=== PATIENT | female | born 1960 | race Caucasian/White ===

== ENCOUNTER 2019-02-26 17:11 | Emergency (ER) | payer BC ==
[2019-02-26 17:43] VITALS: BP 131/69
--- NOTE | 2019-02-26 19:19 | UC ---
Back Pain HPI - HPI Summary HPI Summary: ONSET OF LOW BACK PAIN 5 DAYS AGO. 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 HAS SOME PAIN IN LEFT ANTERIOR THIGH WELL BUT DENIES ANY NUMBNESS/ TINGLING, NO SADDLE ANESTHESIA, NO LOSS OF BOWEL/BLADDER CONTROL. IBUPROFEN HELPS A BIT. PAIN IS NOT PREVENTING HER FROM CARRYING OUT HER DAILY ACTIVITIES. - History of Current Complaint Chief Complaint: UCBackPain Stated Complaint: BACK PAIN Time Seen by Provider: 02/26/19 19:04 Hx Obtained From: Patient Hx Last Menstrual Period: 1.5 yrs Onset/Duration: Gradual Onset, Lasting Days, Still Present Timing: Constant Severity Initially: Moderate Severity Currently: Moderate Pain Intensity: 4 Pain Scale Used: 0-10 Numeric Back Pain: Is Discrete @ - LOW BACK Character: Stiffness Aggravating Factor(s): Movement, Lifting Alleviating Factor(s): Rest, Heat, OTC Meds Associated Signs And Symptoms: Positive: Negative - Allergies/Home Medications Allergies/Adverse Reactions: Allergies Allergy/AdvReac Type Severity Reaction Status Date / Time No Known Allergies Allergy Verified 02/26/19 17:38 PMH/Surg Hx/FS Hx/Imm Hx Cardiovascular History: Hypertension - Surgical History Surgical History: Yes Surgery Procedure, Year, and Place: 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 Negative: Decreased ROM Physical Exam Triage Information Reviewed: Yes Appearance: Well-Appearing, No Pain Distress, Well-Nourished Vital Signs: Initial Vital Signs Temp 97.1 F 02/26/19 17:39 Pulse 77 02/26/19 17:39 Resp 20 02/26/19 17:39 BP 131/69 02/26/19 17:39 Pulse Ox 96 02/26/19 17:39 Vital Signs Reviewed: Yes Eyes: Positive: Conjunctiva Clear ENT: Positive: Hearing grossly normal Neck: Positive: Supple Respiratory: Positive: No respiratory distress, No accessory muscle use Cardiovascular: Positive: Pulses Normal Abdomen Description: Positive: Soft Musculoskeletal: Positive: ROM Intact, No Edema, Other: - NO FOCAL TENDERNESS LOW BACK Neurological: Positive: Alert, Muscle Tone Normal Psychological: Positive: Age Appropriate Behavior Skin: Negative: Rashes Back Pain Course/Dx - Differential Dx/Diagnosis Provider Diagnosis: Acute low back pain Discharge ED - Sign-Out/Discharge Documenting (check all that apply): Patient Departure All imaging exams completed and their final reports reviewed: No Studies - Discharge Plan Condition: Stable Disposition: HOME Prescriptions: Cyclobenzaprine TAB* [Flexeril TAB*] 10 mg PO BID PRN #30 tab PRN Reason: Pain Naproxen [Naproxen 500 mg tab] 500 mg PO BID PRN #30 tablet PRN Reason: Pain Patient Education Materials: Low Back Strain (ED) Referrals: Brandin Hidalgo PA [Primary Care Provider] - If Needed Additional Instructions: YOUR SYMPTOMS SHOULD IMPROVE SIGNIFICANTLY OVER THE NEXT 1-2 WEEKS. IF YOU DO NOT IMPROVE EXPECTED FOLLOW-UP WITH YOUR PCP. REST. HEAT, MASSAGE. NAPROXEN NEEDED FOR DISCOMFORT. TAKE MUSCLE RELAXER BEFORE BED. BE SURE TO GO THROUGH SLOW RANGE OF MOTION AND STRETCHING EXERCISES DAILY YOU ARE ABLE TO PREVENT STIFFENING UP AND MAKING THE DISCOMFORT WORSE. GO TO THE ED WITHOUT FAIL IF YOU DEVELOP NUMBNESS/TINGLING IN YOUR LEGS, NUMBNESS IN THE GENITAL REGION, LOSS OF BOWEL/BLADDER CONTROL, INTOLERABLE PAIN OR ANY OTHER CONCERNING SYMPTOMS. - Billing Disposition and Condition Condition: STABLE Disposition: Home
== END 2019-02-26 19:28 | disposition home or self-care (01) ==
LOC: UCCORT 17:11
DX: M54.5 Low back pain (principal); I10 Essential (primary) hypertension
CPT/HCPCS: 99212; G0463

== ENCOUNTER 2019-07-15 19:45 | Emergency (ER) | payer BC, OTHER ==
[2019-07-15 20:17] VITALS: BP 128/79
--- NOTE | 2019-07-15 20:54 | UC ---
Head Injury HPI - HPI Summary HPI Summary: 58 yo woman with hypertension, slipped on ice and fell backwards at 14:15 today. No loss of consciousness, got up slowly, no neck pain. She has pain in the occipital area and headache, feels a little off in that she is aware that she drove home in an atypical way. No paresthesias, weakness. 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 NO visual disruption since she fell and she does not have diplopia. - History Of Current Complaint Chief Complaint: UCHeadInjury Stated Complaint: SP FALL-HEAD INJURY Time Seen by Provider: 07/15/19 20:44 Hx Obtained From: Patient Hx Last Menstrual Period: 1.5 yrs Onset/Duration: Sudden Onset Severity Currently: Moderate Pain Intensity: 5 Character: Dull, Throbbing Associated Signs And Symptoms: Positive: Confusion - not confusion, but aware of taking a weird route home. Mild decrease in focus at work.. Negative: LOC ( Time In Secs./Mins/Hrs), Memory Loss, Seizure, Epistaxis, Neck Pain, Nausea, Vomiting - Risk Factors SDH Risk Factor: Recent Trauma, Anticoagulent Use - Allergies/Home Medications Allergies/Adverse Reactions: Allergies Allergy/AdvReac Type Severity Reaction Status Date / Time No Known Allergies Allergy Verified 07/15/19 20:10 Home Medications: Home Medications Aspirin 81 mg CHEW TAB* 81 mg PO DAILY 03/03/18 [History Confirmed 07/15/19] Irbesartan (NF) [Avapro (NF)] 150 mg PO DAILY 03/03/18 [History Confirmed ] Lisinopril TAB* [Prinivil TAB*] 20 mg PO QAM 07/15/19 [History Confirmed ] Simvastatin 80 mg PO DAILY 07/15/19 [History Confirmed 07/15/19] dilTIAZem HCL [Tiadylt ER] 300 mg PO DAILY 07/15/19 [History Confirmed 07/15/19] PMH/Surg Hx/FS Hx/Imm Hx Cardiovascular History: Hypertension - Surgical History Surgical History: Yes Surgery Procedure, Year, and Place: 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 Negative: Chest Pain Gastrointestinal: Positive: Negative Genitourinary: Positive: Negative Motor: Positive: Negative Neurovascular: Positive: Negative Musculoskeletal: Positive: Negative Neurological/Mental Status: Positive: Headache Psychological: Positive: Negative Is Patient Immunocompromised?: No Physical Exam Triage Information Reviewed: Yes Appearance: Pain Distress - mild to moderate, alert, able to give history Vital Signs: Initial Vital Signs Temp 97.2 F 07/15/19 20:12 Pulse 87 07/15/19 20:12 Resp 16 07/15/19 20:12 BP 128/79 07/15/19 20:12 Pulse Ox 97 07/15/19 20:12 Eye Exam: Other - right esotropia Eyes: Positive: Conjunctiva Clear ENT Exam: Other - Mild diffuse swelling left occipital area. Tender to palpation. ENT: Positive: Pharynx normal Neck: Positive: Supple, Nontender, No Lymphadenopathy Respiratory: Positive: Lungs clear, Normal breath sounds, No respiratory distress Cardiovascular: Positive: RRR, No Murmur Musculoskeletal Exam: Normal Neurological Exam: Other - Alert, gait normal. Negative Romberg's Eye movements --normal tracking with left, right esotopia. Normal lids, no ptosis. Normal finger to nose on right, past pointing with left digit. Psychological Exam: Other - normal mood and affect. Skin Exam: Normal Diagnostics - Radiology No standard instances Radiology Interpretation Completed By: Radiologist - Patient Name: FAMILIA DORADO Medical Record#: [id number] Ordering Physician: Ana Vasquez MD Acct.#: [id number] : 1960 Age: 58 Sex: F Location: [facility] Exam Date: 07/15/192053 ADM Status: REG ER Order Information: CT BRAIN WO Accession Number: [id number] CPT: 82784 PROCEDURE INFORMATION: Exam: CT Head Without Contrast Exam date and time: 07/15/2019 9:02 PM Age: 58 years old Clinical indication: Injury or trauma; Fall; Initial encounter; Concussion / head injury; Without loss of consciousness; Injury date: 07/15/19; Injury details: PT fell backwards hitting occipital part of head on ice. C/O VALLE and noise sensitivity. PT takes aspirin; Additional info: Fall on occiput, no loc, takes aspirin TECHNIQUE: Imaging protocol: Computed tomography of the head without contrast. Radiation optimization: All CT scans at this facility use at least one of these dose optimization techniques: automated exposure control; mA and/or kV adjustment per patient size (includes targeted exams where dose is matched to clinical indication); or iterative reconstruction. COMPARISON: No relevant prior studies available. FINDINGS: Brain: Normal. No hemorrhage. Unremarkable white matter. No mass effect. Ventricles: Normal. No ventriculomegaly. Bones/joints : Unremarkable. No acute fracture. Sinuses: Visualized sinuses are unremarkable. No fluid levels. Mastoid air cells: Visualized mastoid air cells are well aerated. Soft tissues: Unremarkable. IMPRESSION: No acute intracranial abnormality. Dictated and Authenticated by: Melo Sharif MD 2019 9:30 PM Eastern Time ([place] and [place]) To contact [facility] with a general question: Operations Center - [phone] For direct physician to physician contact: Physician Hotline - [phone] [facility] ([facility] Facility ID #[id number]) <Electronically signed by Melo Sharif MD in OV> 07/15/192129 Dictated By: Melo Sharif MD Dictated Date/Time: 07/15/192101 Transcribed Date/Time: 07/15/192101 Copy to: This report is only to be considered final once signed by the Provider(s) as displayed in the "<Electronically Signed by >" field (s). Absence of a signature indicates the report is in a draft status and still needs to be finalized. In the event this document was created by someone other than the signing Provider, the individual initiating the document will be listed in the "Entered by:" or "Dictated by:" gupta. 1 of 2 Head Injury Course/Dx - Course Course Of Treatment: Rest, monitor for progressive symptoms of concussion. - Differential Dx/Diagnosis Differential Diagnosis/HQI/PQRI: Concussion Without LOC, Contusion Provider Diagnosis: Head injury due to trauma Discharge ED - Sign-Out/Discharge Documenting (check all that apply): Patient Departure All imaging exams completed and their final reports reviewed: Yes - Discharge Plan Condition: Stable Disposition: HOME Patient Education Materials: Head Injury (ED) Forms: *Work Release Referrals: Brandin Hidalgo PA [Primary Care Provider] - Additional Instructions: CT scan of the brain is normal. Use acetaminophen 650mg every 6 hours as needed for pain control. Treatment of mild concussion includes physical rest and brain rest. Rest at home tomorrow and Saturday, avoid excess activity and excess stimulation. If you have worsening headache or symptoms of mental fatigue or confusion, follow up with your primary care doctor. If you have increasing headache and nausea and vomiting, please have an emergency room evaluation. - Billing Disposition and Condition Condition: STABLE Disposition: Home
== END 2019-07-15 21:51 | disposition home or self-care (01) ==
LOC: UCCORT 19:45
DX: S09.90XA Unspecified injury of head, initial encounter (principal); W00.0XXA Fall on same level due to ice and snow, initial encounter; Y92.9 Unspecified place or not applicable; I10 Essential (primary) hypertension; R53.83 Other fatigue; I47.1 Supraventricular tachycardia; Z79.82 Long term (current) use of aspirin; Z79.899 Other long term (current) drug therapy
CPT/HCPCS: 70450; 99211; G0463